=== PATIENT | male | born 1980 | race Caucasian/White ===

== ENCOUNTER 2021-06-23 08:31 | Inpatient (IN) | payer OTHER ==
[2021-06-23] MEDS ORDERED: NITROGLYCERIN SL TABS 0.4 MG TAB SUBLINGUAL STA (08:33)
[2021-06-23] MEDS ORDERED: HEPARIN SODIUM 1,000 UN/ML (10ML VL) IV ONE (08:33)
[2021-06-23] MEDS ORDERED: SODIUM CHLORIDE 0.9% 500 ML 500 ML IV STA (08:33)
[2021-06-23] MEDS ORDERED: LORazepam 2 MG/ML INJ IV STA (08:34)
[2021-06-23] MEDS ORDERED: VERAPAMIL 2.5 MG/ML 2 ML AMP ONE (08:36)
[2021-06-23] MEDS ORDERED: LIDOCAINE 1% INJ 10MG/ML (20 ML MDV) ONE (08:36)
[2021-06-23] MEDS ORDERED: ATORVASTATIN 80 MG TAB PO STA (08:41)
[2021-06-23] MEDS ORDERED: IV FLUID CONTINUATION 950 ML IV ONE (08:45)
--- NOTE | 2021-06-23 08:45 | ED ---
General Adult HPI - General Chief complaint: Chest Pain Stated complaint: STEMI Time Seen by Provider: 06/23/21 08:31 Source: patient, RN notes reviewed, old records reviewed Mode of arrival: EMS Limitations: no limitations - History of Present Illness Initial comments: This is a 41-year-old male who presents emergency Department stating he started having chest pain is 6:00 this morning. He called EMS when EMS arrived they did an EKG and believe the patient to be having a STEMI. I sent the EKG to us and we called a STEMI overhead 20 minutes prior to the patient's arrival. Patient went into trauma to when he arrived because there was no catheterization lab suite available. Patient states that he had some radiation of the pain to his neck and some shortness of breath. Patient states the pain is only a little bit better since he was given fentanyl in route but he states the pain is still pretty significant. Patient did complain of nausea and was given Zofran in route. Patient also had some diaphoresis. Patient states he has high blood pressure and is a smoker. Patient states he has a distant family history of heart disease in an uncle who from heart attack. Patient states has some tingling of his fingertips on both hands. Patient denies any abdominal pain. Patient states currently he is no longer nauseated. Patient denies any recent fever chills or cough. - Related Data Allergies Allergy/AdvReac Type Severity Reaction Status Date / Time Penicillins Allergy Unknown Verified 06/23/21 08:36 Childhood Review of Systems ROS Statement: Those systems with pertinent positive or pertinent negative responses have been documented in the HPI. ROS Other: All systems not noted in ROS Statement are negative. Past Medical History Past Medical History: Hyperlipidemia, Hypertension History of Any Multi-Drug Resistant Organisms: None Reported Past Surgical History: No Surgical Hx Reported Past Psychological History: No Psychological Hx Reported Smoking Status: Current every day smoker Past Alcohol Use History: None Reported Past Drug Use History: None Reported General Exam - General Exam Comments Initial Comments: GENERAL: Patient is well-developed and well-nourished. Patient is nontoxic and well- hydrated and is in mild distress. ENT: Neck is soft and supple. No significant lymphadenopathy is noted. Oropharynx is clear. Moist mucous membranes. Neck has full range of motion without eliciting any pain. EYES: The sclera were anicteric and conjunctiva were pink and moist. Extraocular movements were intact and pupils were equal round and reactive to light. Eyelids were unremarkable. PULMONARY: Unlabored respirations. Good breath sounds bilaterally. No audible rales rhonchi or wheezing was noted. CARDIOVASCULAR: There is a regular rate and rhythm without any murmurs gallops or rubs. ABDOMEN: Soft and nontender with normal bowel sounds. SKIN: Skin is clear with no lesions or rashes and otherwise unremarkable. NEUROLOGIC: Patient is alert and oriented x3. Cranial nerves II through XII are grossly intact. Motor and sensory are also intact. Normal speech, volume and content. Symmetrical smile. MUSCULOSKELETAL: Normal extremities with adequate strength and full range of motion. LYMPHATICS: No significant lymphadenopathy is noted PSYCHIATRIC: Normal psychiatric evaluation. Limitations: no limitations Course Vital Signs 06/23/21 08:32 Pulse Rate 75 Blood Pressure 141/103 O2 Sat by Pulse 97 Oximetry Medical Decision Making - Medical Decision Making EKG shows sinus rhythm at 75 bpm DC interval is on a 45 QRS is 94 QT interval 391 QTC is 420. Patient's EKG shows ST segment elevation in leads II, III, and F aVF and ST segment depression in 1 and aVL. Patient also has ST segment depression also in V1 and V2. Chest x-ray showed no acute abnormality. Patient was given a bolus of heparin. Patient was also given 0.5 of Ativan. Patient was also given sublingual nitroglycerin in the emergency department. Dr. Godwin arrived at 840. I spoke with Dr. Godwin and I spoke with the admitting physician I wrote admitting orders. Critical Care Time Critical Care Time: Yes Total Critical Care Time: 31 Disposition Clinical Impression: ST elevation myocardial infarction (STEMI) Disposition: ADMITTED IP TO THIS HOSP Referrals: Merline Hernandez NPC [REFERRING] - 1-2 days Time of Disposition: 08:44
[2021-06-23 08:47] LABS: Basophils # (A) 0.1 k/uL (0-0.2); Basophils % (A) 1 %; Eosinophils # (A) 0.4 k/uL (0-0.7); Eosinophils % (A) 3 %; HCT 44.3 % (39.0-53.0); HGB 14.8 gm/dL (13.0-17.5); Lymphocytes # (A) 2.3 k/uL (1.0-4.8); Lymphocytes % (A) 16 %; MCH 31.5 pg (25.0-35.0); MCHC 33.3 g/dL (31.0-37.0); MCV 94.7 fL (80.0-100.0); Mean Platelet Volume 8.1; Monocytes # (A) 0.7 k/uL (0-1.0); Monocytes % (A) 5 %; Neutrophils # (A) 10.7 k/uL (1.3-7.7); Neutrophils % (A) 74 %; Platelet Count 229 k/uL (150-450); RBC 4.68 m/uL (4.30-5.90); RDW 12.2 % (11.5-15.5); WBC 14.4 k/uL (3.8-10.6)
[2021-06-23] MEDS ORDERED: SODIUM CHLORIDE 0.9% 500 ML 500 ML IV ONE (08:50)
[2021-06-23 08:59] LABS: Partial Thromboplastin Time 49.1 sec (22.0-30.0); Prothrombin Time 10.6 sec (9.0-12.0)
[2021-06-23] MEDS ORDERED: HYDROmorphone 1 MG/ML 1 ML SYRINGE IVP ONE (08:59)
--- NOTE | 2021-06-23 08:59 | XR ---
EXAMINATION TYPE: XR chest 1V portable DATE OF EXAM: 06/23/2021 COMPARISON: NONE HISTORY: Chest pain TECHNIQUE: Single frontal view of the chest is obtained. FINDINGS: There is no focal air space opacity, pleural effusion, or pneumothorax seen. The cardiac silhouette size is within normal limits. There are overlying leads. The osseous structures are intac t. IMPRESSION: No acute process.
[2021-06-23] MEDS ORDERED: LIDOCAINE 1% INJ 10MG/ML (20 ML MDV) SQ ONE (09:03)
[2021-06-23] MEDS ORDERED: HEPARIN SODIUM 1,000 UN/ML (10ML VL) ONE (09:11)
[2021-06-23 09:16] LABS: ALT 26 U/L (4-49); African American GFR (CKD) >90 (>60 ml/min/1.73 sqM); Albumin 4.2 g/dL (3.5-5.0); Anion Gap 8 mmol/L; Blood Urea Nitrogen 18 mg/dL (9-20); Calcium 8.5 mg/dL (8.4-10.2); Carbon Dioxide 22 mmol/L (22-30); Chloride 109 mmol/L (98-107); Glucose 143 mg/dL (74-99); Non-African American GFR(CKD) 87 (>60 ml/min/1.73 sqM); Sodium 139 mmol/L (137-145); Total Bilirubin 0.7 mg/dL (0.2-1.3); Total Protein 7.3 g/dL (6.3-8.2)
[2021-06-23] MEDS ORDERED: CLOPIDOGREL 75 MG TAB ONE (09:17)
[2021-06-23 09:21] LABS: AST 38 U/L (17-59); Alkaline Phosphatase 77 U/L (38-126); Magnesium 1.9 mg/dL (1.6-2.3)
[2021-06-23] MEDS: PHENYLEPHRINE-0.9% NACL SYG 1,000 MCG/10 ML SYRINGE IV ONE ×3 (09:21→09:30)
[2021-06-23] MEDS ORDERED: TIROFIBAN 12.5MG-250ML NS 250 ML IV ONE (09:24)
[2021-06-23] MEDS ORDERED: TIROFIBAN BOLUS 12.5MG/250 ML BAG IV ONE (09:24)
[2021-06-23] MEDS ORDERED: niCARdipine 25 MG/10 ML VIAL ONE (09:25)
[2021-06-23] MEDS ORDERED: NOREPINEPHRINE 4 MG in SODIUM CHLORIDE 0.9% 250 ML IV ONE (09:35)
[2021-06-23] MEDS ORDERED: CLOPIDOGREL 75 MG TAB PO ONE (09:42)
[2021-06-23] MEDS ORDERED: PHENYLEPHRINE-0.9% NACL SYG 1,000 MCG/10 ML SYRINGE IV ONE (09:46)
[2021-06-23] MEDS ORDERED: niCARdipine Syringe (1,000 mcg/10 mL) INTRACORON ONE (09:49)
[2021-06-23] MEDS ORDERED: IOPAMIDOL-370 100ML BTL INJ ONE ×2 (09:50→10:07)
[2021-06-23] MEDS ORDERED: NITROGLYCERIN 1000MCG/10ML SYRINGE INTRACORON ONE (09:57)
[2021-06-23] MEDS: SODIUM CHLORIDE 0.9% 1,000 ML IV SCH ×2 (10:30→16:25)
--- NOTE | 2021-06-23 10:34 | P.CRDCN ---
History of Present Illness Consult date: 06/23/21 History of present illness: HISTORY OF PRESENT ILLNESS: This is a 41 year old male with a past medical history significant for hypertension, marijuana use, and nicotine dependence. Patient does not follow with a ob/gyn. We have been asked to see the patient in consultation for STEMI. Patient examined at the bedside in the ER. Patient began having chest pain this morning. He reports the pain was in the middle of his chest and also the right side. He reports radiation into his back and his right arm. EKG completed revealed ST elevation in inferior leads. * EKG reveals ST elevation in inferior leads with reciprocal changes * Chest xray negative for acute process * Laboratory data: WBC 14.4. Hemoglobin 14.8. Platelet count 129. Sodium 139. Potassium 5.0. BUN 18. Creatinine 1.07. Magnesium 1.9. Troponin 0.056. * Current home cardiac medications include lisinopril 20 mg daily and hydrochlorothiazide 25 mg daily REVIEW OF SYSTEMS: At the time of my exam: CONSTITUTIONAL: Denies fever or chills. HEENT: Denies blurred vision, vision changes, or eye pain. Denies hemoptysis CARDIOVASCULAR: + chest pain. Denies orthopnea. Denies PND. Denies palpitations RESPIRATORY: Denies shortness of breath. GASTROINTESTINAL: Denies abdominal pain. Denies nausea or vomiting. HEMATOLOGIC: Denies bleeding disorders. GENITOURINARY: Denies any blood in urine. SKIN: Denies pruitis. Denies rash. PHYSICAL EXAM: VITAL SIGNS: Reviewed. GENERAL: Well-developed in no acute distress. HEENT: Head is normocephalic. Pupils are equal, round. Sclerae anicteric. Mucous membranes of the mouth are moist. Neck supple. No JVD or thyromegaly LUNGS: Respirations even and unlabored. Lungs essentially clear to auscultation bilaterally. HEART: Regular rate and rhythm. S1 and S2 heard. ABDOMEN: Soft. Nondistended. Nontender. EXTREMITIES: Normal range of motion. No clubbing or cyanosis. Peripheral pulses intact. No lower extremity edema NEUROLOGIC: Awake and alert. Oriented x 3. 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 Vazquez Further recommendations pending patient course Nurse practitioner note has been reviewed by physician. Signing provider agrees with the documented findings, assessment, and plan of care. Past Medical History Past Medical History: Hyperlipidemia, Hypertension History of Any Multi-Drug Resistant Organisms: None Reported Past Surgical History: No Surgical Hx Reported Past Psychological History: No Psychological Hx Reported Smoking Status: Current every day smoker Past Alcohol Use History: None Reported Past Drug Use History: None Reported Medications and Allergies Home Medications Medication Instructions Recorded Confirmed Type Albuterol Sulfate [Proair Hfa] 2 puff INHALATION RT-QID PRN 06/23/21 06/23/21 History Budesonide/Formoterol Fumarate 2 puff INHALATION RT-BID 06/23/21 06/23/21 History [Symbicort 80-4.5 Mcg Inhaler] Cyclobenzaprine [Flexeril] 20 mg PO BID PRN 06/23/21 06/23/21 History Dicyclomine HCl 20 mg PO QID 06/23/21 06/23/21 History Naproxen [Naprosyn] 500 mg PO BID 06/23/21 06/23/21 History Omeprazole 40 mg PO BID 06/23/21 06/23/21 History buPROPion HCL [buPROPion HCL Xl] 150 mg PO DAILY 06/23/21 06/23/21 History buPROPion XL [Wellbutrin XL] 300 mg PO DAILY 06/23/21 06/23/21 History hydroCHLOROthiazide [Hydrodiuril] 25 mg PO DAILY 06/23/21 06/23/21 History lisinopriL [Prinivil] 20 mg PO DAILY 06/23/21 06/23/21 History Allergies Allergy/AdvReac Type Severity Reaction Status Date / Time Penicillins Allergy Unknown Verified 06/23/21 09:28 Childhood Physical Exam Vitals: Vital Signs Pulse BP Pulse Ox 06/23/21 08:35 136/101 06/23/21 08:32 75 141/103 97 Intake and Output 06/22/21 06/23/21 06/23/21 22:59 06:59 14:59 Intake Total 423.41 Output Total 0 Balance 423.41 Intake: IV 423.41 Output: Urine 0 Other: Weight 119.295 kg Results 06/23/21 08:39 06/23/21 08:39 Cardiac Enzymes 06/23/21 06/23/21 Range/Units 08:39 08:39 AST 38 (17-59) U/L Troponin I 0.056 H* (0.000-0.034) ng/mL Coagulation 06/23/21 Range/Units 08:39 PT 10.6 (9.0-12.0) sec APTT 49.1 H (22.0-30.0) sec CBC 06/23/21 Range/Units 08:39 WBC 14.4 H (3.8-10.6) k/uL RBC 4.68 (4.30-5.90) m/uL Hgb 14.8 (13.0-17.5) gm/dL Hct 44.3 (39.0-53.0) % Plt Count 229 (150-450) k/uL Comprehensive Metabolic Panel 06/23/21 Range/Units 08:39 Sodium 139 (137-145) mmol/L Potassium 5.0 (3.5-5.1) mmol/L Chloride 109 H (98-107) mmol/L Carbon Dioxide 22 (22-30) mmol/L BUN 18 (9-20) mg/dL Creatinine 1.07 (0.66-1.25) mg/dL Glucose 143 H (74-99) mg/dL Calcium 8.5 (8.4-10.2) mg/dL AST 38 (17-59) U/L ALT 26 (4-49) U/L Alkaline Phosphatase 77 (38-126) U/L Total Protein 7.3 (6.3-8.2) g/dL Albumin 4.2 (3.5-5.0) g/dL Current Medications Generic Name Dose Route Start Last Admin Trade Name Freq PRN Reason Stop Dose Admin Sodium Chloride 1,000 mls @ 75 mls/hr 06/23/21 10:15 Saline 0.9% IV 06/24/21 10:30 .[id number] VIDAL Intake and Output 06/22/21 06/23/21 06/23/21 22:59 06:59 14:59 Intake Total 423.41 Output Total 0 Balance 423.41 Intake: IV 423.41 Output: Urine 0 Other: Weight 119.295 kg Patient Weight 06/24/21 06:59 Weight 119.295 kg 06/23/21 08:39 06/23/21 08:39
[2021-06-23 10:36] LABS: Glucose,Whole Blood 154 mg/dL (75-99)
[2021-06-23] MEDS: TIROFIBAN 12.5MG-250ML NS 250 ML IV SCH ×2 (11:00→16:26)
--- NOTE | 2021-06-23 11:43 | CC ---
CARDIAC CATHETERIZATION REPORT DATE OF SERVICE: 06/23/2021. PROCEDURES: 1. Left heart catheterization and coronary angiography. 2. Percutaneous transluminal coronary angioplasty and stenting of a totally occluded RCA in the setting of an acute ST-elevation PR with reperfusion accomplished in 46 minutes. Drug-eluting stents were deployed. PERFORMED BY: Dr. Kelvin Vazquez. Moderate conscious sedation time was 65 minutes. Patient was administered Versed and Dilaudid. Oxygen saturation, hemodynamics and EKG were monitored closely. CLINICAL INFORMATION: Mr. Dannie Chilel is a 41-year-old morbidly obese gentleman who developed chest pain, was brought here by EMS from [place]. He was seen and evaluated by Dr. Godwin when he presented with an acute inferior myocardial infarction with ST elevation. He was hemodynamically stable after receiving some IV fluids. I proceeded with a prompt cardiac catheterization after due discussion regarding risks, benefits and options. PROCEDURE NOTE: Under strict aseptic precautions and local anesthesia, a 6-Mohawk introducer was placed in the right radial artery. I started off by doing a PCI. I used a standard right Theo guide catheter to cannulate the right coronary artery. This vessel was totally occluded. I went ahead and performed PCI of this vessel with an excellent result and then performed coronary angiography of the left system. The same right catheter was used to check LV pressure, but LV gram was not performed. Following the procedure, the sheath was taken out and TR band applied as per protocol with saturation in the fingers of the hand of about 95%. Patient tolerated the procedure well without complication. Excellent angiographic result was achieved. He received intravenous heparin as well as Aggrastat drip. ACT was between 200 and 250. He received 600 mg of Plavix. Results were discussed with the patient. No family was available. He was sent to the room in a stable condition after application of a TR band. Patient required transient use of Levophed in the lab head. CARDIAC CATHETERIZATION FINDINGS: RIGHT CORONARY ARTERY: Large dominant vessel, totally occluded, seen as a stump. LEFT MAIN CORONARY ARTERY: Short, patent, disease-free vessel that bifurcates into LAD and circumflex. LEFT ANTERIOR DESCENDING CORONARY ARTERY: Good-caliber vessel extends along the anterior wall. It gives off septal and diagonal branches. There is a good-sized diagonal branch that comes off in the mid portion, several smaller septal branches. There are minor irregularities. No significant disease. There is no more than a 35% narrowing in the mid LAD. Good-caliber and good-distribution vessels are noted. Septals are free of significant disease. LEFT POSTERIOR CIRCUMFLEX CORONARY ARTERY: Nondominant vessel gives off a good-sized obtuse marginal and then a posterolateral branch and gives off an AV groove branch and left atrial circumflex branch. There are only minor irregularities. No significant disease in the circumflex. Left ventricular end-diastolic pressure was about 13 mmHg without any gradient across the aortic valve. 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 He presented with acute inferior ST-elevation PR. Right coronary is a dominant vessel. No significant disease in left system. Normal filling pressures. No gradient. RECOMMENDATIONS: I proceeded with PCI of RCA expeditiously. PCI PROCEDURE DETAILS: I used a standard right Theo catheter and a run-through wire. I used a 3.0 caliber 12 mm long Trek balloon to pre-dilate the lesion. This was a long lesion with haziness and significant amount of thrombus burden. I also started Aggrastat drip. ACT was kept between 200 and 250. I deployed initially a 28 mm long 3.5 caliber Xience stent, and at the distal end of the stent there was still some haziness and narrowing. I then used a 4.0 caliber mm Xience stent, and distal to it I deployed another 3.5 caliber Xience stent. Between the 4.0 and 3.5 there was a small area which looked like a gap between the two stents. I deployed an 8 mm long 3.5 caliber Xience stent. Patient therefore has a 28 mm 3.5 caliber stent proximally followed by a 4.0 caliber stent, and then there are two 3.5 stents, 8 mm and distally 12 mm. Excellent angiographic result was achieved without complication. Patient required some IV fluids and transient use of Levophed and phenylephrine. However, excellent result was achieved. He was off all pressors. He was sent to the room in a stable condition. Details were discussed with the patient. There was no family available. There was an excellent MICHELL-3 flow with complete resolution of chest pain and complete resolution of EKG changes. Patient will have an echocardiogram tomorrow. MMODL / IJN: [id number] /
--- NOTE | 2021-06-23 12:34 | P.CNPUL ---
History of Present Illness Consult date: 06/23/21 Reason for consult: chest pain History of present illness: 41-year-old male patient, obese, BMI of 36.7, positive coronary artery disease history in the family, a chronic smoker with smokes a pack of symptoms today and he carries more than [id number] smoking history and he also smokes marijuana. He presented to the hospital because of chest pain and he was found to have your wall ST segment elevation microinfarction. Based on that, a STEMI alert was initiated and the patient was taken to the [facility] and the patient underwent cardiac catheterization and depressed and stenting times for to the RCA. Following that, the patient was brought into the intensive care unit. Currently history of any chest pain. EKG has normalized. Troponin initially was a 0.056. Normal renal function. Normal electrolytes. Plated count was at 129 with a white second of 14.4 and a hemoglobin of 14.8. The patient is known to have hypertension and no other history of cardiac disease. He has chronic bronchitis due to COPD maintenance Symbicort on outpatient basis. His cardiac catheterization was done through the right radial approach. No evidence of any bleed at the site. He has equal and symmetrical pulses in all 4 extremities. No focal logical deficits point in time. In terms of his COVID 19 status, the patient has not been vaccinated for COVID 19. Review of Systems Constitutional: Denies chills, Denies fever Eyes: denies as per HPI, denies blurred vision, denies bulging eye, denies decreased vision, denies diplopia, denies discharge, denies dry eye, denies irritation, denies itching, denies pain, denies photophobia, denies loss of peripheral vision, denies loss of vision, denies tunnel vision/blind spots Ears: deny: decreased hearing, ear discharge, earache, tinnitus Ears, nose, mouth and throat: Reports as per HPI Breasts: absent: as per HPI, gynecomastia Cardiovascular: Reports chest pain Respiratory: Reports cough Gastrointestinal: Reports as per HPI Genitourinary: Reports as per HPI Musculoskeletal: Reports as per HPI Musculoskeletal: absent: ankle pain, ankle stiffness, ankle swelling Integumentary: Reports as per HPI Neurological: Reports as per HPI Psychiatric: Reports as per HPI Endocrine: Reports as per HPI Hematologic/Lymphatic: Reports as per HPI Allergic/Immunologic: Reports as per HPI Past Medical History Past Medical History: Hyperlipidemia, Hypertension Additional Past Medical History / Comment(s): hand and foot edema, ibs, inconten of urine and stool (wears a brief). Last Myocardial Infarction Date:: History of Any Multi-Drug Resistant Organisms: None Reported Past Surgical History: No Surgical Hx Reported Past Anesthesia/Blood Transfusion Reactions: No Reported Reaction Date of Last Stent Placement:: Past Psychological History: No Psychological Hx Reported Smoking Status: Current every day smoker Past Alcohol Use History: None Reported Past Drug Use History: None Reported - Past Family History Father History Unknown: Yes Additional Family Medical History / Comment(s): abusive to mother, alcoholic Mother Family Medical History: AFIB Medications and Allergies Home Medications Medication Instructions Recorded Confirmed Type Albuterol Sulfate [Proair Hfa] 2 puff INHALATION RT-QID PRN 06/23/21 06/23/21 History Budesonide/Formoterol Fumarate 2 puff INHALATION RT-BID 06/23/21 06/23/21 History [Symbicort 80-4.5 Mcg Inhaler] Cyclobenzaprine [Flexeril] 20 mg PO BID PRN 06/23/21 06/23/21 History Dicyclomine HCl 20 mg PO QID 06/23/21 06/23/21 History Naproxen [Naprosyn] 500 mg PO BID 06/23/21 06/23/21 History Omeprazole 40 mg PO BID 06/23/21 06/23/21 History buPROPion HCL [buPROPion HCL Xl] 150 mg PO DAILY 06/23/21 06/23/21 History buPROPion XL [Wellbutrin XL] 300 mg PO DAILY 06/23/21 06/23/21 History hydroCHLOROthiazide [Hydrodiuril] 25 mg PO DAILY 06/23/21 06/23/21 History lisinopriL [Prinivil] 20 mg PO DAILY 06/23/21 06/23/21 History Allergies Allergy/AdvReac Type Severity Reaction Status Date / Time Penicillins Allergy Unknown Verified 06/23/21 09:28 Childhood Physical Exam Vitals: Vital Signs Temp Pulse Resp BP Pulse Ox 06/23/21 11:00 109 H 12 93 L 06/23/21 10:45 108 H 11 L 125/73 93 L 06/23/21 10:34 97.5 F L 108 H 11 L 93 L 06/23/21 08:35 136/101 06/23/21 08:32 75 141/103 97 Intake and Output 06/22/21 06/23/21 06/23/21 22:59 06:59 14:59 Intake Total 519.83 Output Total 0 Balance 519.83 Intake: IV 519.83 Sodium Chloride 0.9% 1, 75 000 ml @ 75 mls/hr IV . [id number] [facility] Rx#:[id number] Tirofiban 12.5MG-250Ml Ns 21.42 250 ml @ 0 mls/hr IV . [facility] Rx#: [id number] Output: Urine 0 Other: Weight 119.295 kg The patient appeared well nourished and normally developed. Vital signs as documented. Head exam is unremarkable. No scleral icterus or corneal arcus note d. Neck is without jugular venous distension, thyromegaly, or carotid bruits. Carotid upstrokes are brisk bilaterally. Lungs are clear to auscultation and percussion. Cardiac exam reveals the PMI to be normally sized and situated. Rhythm is regular. First and second heart sounds normal. No murmurs, rubs or gallops. Abdominal exam reveals normal bowel sounds, no masses, no organomegaly and no aortic enlargement. Extremities are nonedematous and both femoral and pedal pulses are normal. The right upper extremity site is dry clean and intact and there is a radial artery stop for compression. Examination of the skin revealed no evidence of significant rashes, suspicious appearing nevi or other concerning lesions.Neurologically, the patient is awake and alert and the patient does not have any focal neurological deficit. Cranial nerves are essentially intact. Results - Laboratory Findings CBC and BMP: 06/23/21 08:39 06/23/21 08:39 PT/INR, D-dimer PT 10.6 sec (9.0-12.0) 06/23/21 08:39 INR 1.0 (<1.2) 06/23/21 08:39 Abnormal lab findings: Abnormal Labs 06/23/21 06/23/21 06/23/21 08:39 08:39 08:39 WBC 14.4 H Neutrophils # 10.7 H APTT 49.1 H Chloride 109 H Glucose 143 H POC Glucose (mg/dL) Troponin I 06/23/21 06/23/21 08:39 10:33 WBC Neutrophils # APTT Chloride Glucose POC Glucose (mg/dL) 154 H Troponin I 0.056 H* - Diagnostic Findings Chest x-ray: image reviewed Assessment and Plan Plan: [address] segment elevation myocardial infarction. Patient is post cardiac catheterization and stenting of the RCA times 4. Please refer to the detailed cardiac catheterization report provided by cardiology. Currently hemodynamically stable and the patient is history of any chest pain. 2 smoker 3 hyperlipidemia 4 history of marijuana smoking 5 chronic bronchitis Plan Keep the patient intensive care unit Continue aspirin and Plavix May need to start the patient on metoprolol 25 mg twice a day Start the patient on high-dose statins Fasting lipid profile Chest x-ray was clear 2-D echocardiogram We'll continue to follow Time with Patient: Greater than 30
--- NOTE | 2021-06-23 13:28 | P.HPIM ---
History of Present Illness H&P Date: 06/23/21 Chief Complaint: Chest pain Patient is a 41-year-old male with a known with a known history of hypertension,, carotid currently everyday smoking, marijuana use occasionally an d distant history of fall with left shoulder injury presents to ER with complaints of chest pain. Patient states that he woke up in the morning and felt pain in the middle of his chest and radiating to the right shoulder and to the back and right arm.. He felt some numbness in the left fingers. Patient has been having pain in the left shoulder from recent fall.Patient states that he has been having dizziness when he gets up suddenly. Denies any exertional dyspnea or shortness of breath. Pain is associate with shortness of breath and diaphoresis and nausea and episode of vomiting x1. Patient was given fentanyl by EMS and seemed to improve his pain. EKG showed ST elevation in the inferior leads. Patient was immediately taken to cardiac catheterization. EKG showed ST elevation in the inferior leads. Chest x-ray showed no acute process. Laboratory showed WBC 14.4 hemoglobin 14.8 and platelets 229 Sodium 139 potassium 5.0 chloride 109 BUN 18 and creatinine 1.07 and blood sugar is 143 Troponin 0 0.056 Liver enzymes are not elevated. Review of Systems Constitutional: Patient denies any fever or chills . No generalized weakness or weight loss. Abdomen: Patient denied nausea vomiting and diarrhea and abdominal pain. Cardiovascular: Patient denies any chest pain or short of breath no palpitations. Respiratory: patient denied any cough is from production. No shortness of breath Neurologic: Patient denied any numbness or tingling headache. Musculoskeletal: Patient denies any complaints of joint swelling or deformity. Skin: Negative Psychiatric: Negative Endocrine: No heat or cold intolerance. No recent weight gain. Genitourinary: No dysuria or hematuria. All other 14 point ROS negative except the above Past Medical History Past Medical History: Hyperlipidemia, Hypertension Additional Past Medical History / Comment(s): hand and foot edema, ibs, inconten of urine and stool (wears a brief). Last Myocardial Infarction Date:: History of Any Multi-Drug Resistant Organisms: None Reported Past Surgical History: No Surgical Hx Reported Past Anesthesia/Blood Transfusion Reactions: No Reported Reaction Date of Last Stent Placement:: Past Psychological History: No Psychological Hx Reported Smoking Status: Current every day smoker Past Alcohol Use History: None Reported Past Drug Use History: None Reported - Past Family History Father History Unknown: Yes Additional Family Medical History / Comment(s): abusive to mother, alcoholic Mother Family Medical History: AFIB Medications and Allergies Home Medications Medication Instructions Recorded Confirmed Type Albuterol Sulfate [Proair Hfa] 2 puff INHALATION RT-QID PRN 06/23/21 06/23/21 Hi story Budesonide/Formoterol Fumarate 2 puff INHALATION RT-BID 06/23/21 06/23/21 History [Symbicort 80-4.5 Mcg Inhaler] Cyclobenzaprine [Flexeril] 20 mg PO BID PRN 06/23/21 06/23/21 History Dicyclomine HCl 20 mg PO QID 06/23/21 06/23/21 History Naproxen [Naprosyn] 500 mg PO BID 06/23/21 06/23/21 History Omeprazole 40 mg PO BID 06/23/21 06/23/21 History buPROPion HCL [buPROPion HCL Xl] 150 mg PO DAILY 06/23/21 06/23/21 History buPROPion XL [Wellbutrin XL] 300 mg PO DAILY 06/23/21 06/23/21 History hydroCHLOROthiazide [Hydrodiuril] 25 mg PO DAILY 06/23/21 06/23/21 History lisinopriL [Prinivil] 20 mg PO DAILY 06/23/21 06/23/21 History Allergies Allergy/AdvReac Type Severity Reaction Status Date / Time Penicillins Allergy Unknown Verified 06/23/21 09:28 Childhood Physical Exam Vitals: Vital Signs Temp Pulse Resp BP Pulse Ox 06/23/21 12:45 91 17 128/80 94 L 06/23/21 12:30 104 H 28 H 126/81 95 06/23/21 12:15 90 23 133/81 95 06/23/21 12:00 100 15 122/83 94 L 06/23/21 11:45 90 24 128/79 95 06/23/21 11:30 90 16 105/86 95 06/23/21 11:15 104 H 19 131/83 95 06/23/21 11:00 109 H 12 93 L 06/23/21 10:45 108 H 11 L 125/73 93 L 06/23/21 10:34 97.5 F L 108 H 11 L 93 L 06/23/21 08:35 136/101 06/23/21 08:32 75 141/103 97 Intake and Output 06/22/21 06/23/21 06/23/21 22:59 06:59 14:59 Intake Total 1116.25 Output Total 0 Balance 1116.25 Intake: IV 616.25 Sodium Chloride 0.9% 1, 150 000 ml @ 75 mls/hr IV . [id number] [facility] Rx#:[id number] Tirofiban 12.5MG-250Ml Ns 42.84 250 ml @ 0 mls/hr IV . [facility] Rx#: [id number] Oral 500 Output: Urine 0 Other: Weight 119.295 kg PHYSICAL EXAMINATION: Patient is lying in the bed comfortably, no acute distress, awake alert and oriented.. HEENT: Normocephalic. Neck is supple. Pupils reactive. Nostrils clear. Oral cavity is moist. Neck reveals no JVD, carotid bruits, or thyromegaly. CHEST EXAMINATION: Trachea is central. Symmetrical expansion. Lung cole clear to auscultation and percussion. CARDIAC: Normal S1, S2 with no gallops. No murmurs ABDOMEN: Soft. Bowel sounds normal. No organomegaly. No abdominal bruits. Extremities: reveal no edema. No clubbing or cyanosis Neurologically awake, alert, oriented x3 with well-coordinated movements. No focal deficits noted Skin: No rash or skin lesions. Psychiatric: Coperative. Nonsuicidal Musculoskeletal: No joint swelling or deformity. Normal range of motion. Results CBC & Chem 7: 06/23/21 08:39 06/23/21 08:39 Labs: Abnormal Lab Results - Last 24 Hours (Table) 06/23/21 06/23/21 06/23/21 Range/Units 08:39 08:39 08:39 WBC 14.4 H (3.8-10.6) k/uL Neutrophils # 10.7 H (1.3-7.7) k/uL APTT 49.1 H (22.0-30.0) sec Chloride 109 H (98-107) mmol/L Glucose 143 H (74-99) mg/dL POC Glucose (mg/dL) (75-99) mg/dL Troponin I (0.000-0.034) ng/mL 06/23/21 06/23/21 Range/Units 08:39 10:33 WBC (3.8-10.6) k/uL Neutrophils # (1.3-7.7) k/uL APTT (22.0-30.0) sec Chloride (98-107) mmol/L Glucose (74-99) mg/dL POC Glucose (mg/dL) 154 H (75-99) mg/dL Troponin I 0.056 H* (0.000-0.034) ng/mL Thrombosis Risk Factor Assmnt - DVT/VTE Prophylaxis DVT/VTE Prophylaxis: Pharmacologic Prophylaxis ordered Assessment and Plan Assessment: Acute ST elevated inferior wall [place] Hypertension Mild leukocytosis. Likely reactive. Follow-up repeat CBC. Ongoing nicotine addiction History of marijuana use Recent fall and left shoulder injury. DVT prophylaxis Plan: Patient was started on IV heparin and was taken to [facility]. Patient is status post cardiac catheterization and stent placement to RCA. Continue with aspirin, statins, Plavix and metoprolol. Continue with telemetry monitoring.Follow-up lipid panel Cardiology and pulmonary is on board. Time with Patient: Greater than 30
--- NOTE | 2021-06-23 14:49 | XR ---
Left shoulder HISTORY: Trauma and pain 3 views of left shoulder Bone mineralization, joint spaces and alignment are maintained. There are overlying artifacts. Left l guillermina apex as visualized is normal. IMPRESSION: No fracture or dislocation is evident.
[2021-06-23] MEDS: ACETAMINOPHEN TAB 325 MG TAB PO PRN ×2 (15:32→20:51)
[2021-06-23] MEDS: PANTOPRAZOLE 40 MG TABLET PO SCH (16:31)
[2021-06-23] MEDS: METOPROLOL TARTRATE 25 MG TAB PO SCH (20:51)
[2021-06-24] MEDS: SODIUM CHLORIDE 0.9% 1,000 ML IV SCH (05:38)
[2021-06-24 06:16] LABS: Basophils % (A) 0 %; Eosinophils # (A) 0.2 k/uL (0-0.7); Eosinophils % (A) 2 %; HGB 13.7 gm/dL (13.0-17.5); Lymphocytes # (A) 2.6 k/uL (1.0-4.8); Lymphocytes % (A) 18 %; MCH 31.1 pg (25.0-35.0); MCHC 32.5 g/dL (31.0-37.0); MCV 95.5 fL (80.0-100.0); Mean Platelet Volume 7.9; Monocytes # (A) 1.1 k/uL (0-1.0); Monocytes % (A) 8 %; Neutrophils % (A) 70 %; Platelet Count 202 k/uL (150-450); RBC 4.39 m/uL (4.30-5.90); RDW 12.3 % (11.5-15.5); WBC 14.2 k/uL (3.8-10.6)
[2021-06-24 06:30] LABS: African American GFR (CKD) >90 (>60 ml/min/1.73 sqM); Anion Gap 4 mmol/L; Blood Urea Nitrogen 14 mg/dL (9-20); Calcium 8.4 mg/dL (8.4-10.2); Carbon Dioxide 23 mmol/L (22-30); Chloride 108 mmol/L (98-107); Glucose 118 mg/dL (74-99); Non-African American GFR(CKD) >90 (>60 ml/min/1.73 sqM); Potassium 4.2 mmol/L (3.5-5.1); Sodium 135 mmol/L (137-145)
[2021-06-24] MEDS: PANTOPRAZOLE 40 MG TABLET PO SCH (06:33)
[2021-06-24] MEDS ORDERED: PANTOPRAZOLE 40 MG TABLET PO SCH (07:30)
[2021-06-24] MEDS: ASPIRIN 81 MG PO SCH (08:36)
[2021-06-24] MEDS: METOPROLOL TARTRATE 25 MG TAB PO SCH ×2 (08:36→20:23)
[2021-06-24] MEDS: CLOPIDOGREL 75 MG TAB PO SCH (08:36)
[2021-06-24] MEDS: ATORVASTATIN 80 MG TAB PO SCH (08:36)
--- NOTE | 2021-06-24 09:00 | ECHOF ---
Referral Reason:lv function MEASUREMENTS -------- HEIGHT: 180.3 cm WEIGHT: 119.3 kg BP: 128/79 IVSd: 1.5 cm (0.6 - 1.1) LVIDd: 4.6 cm (3.9 - 5.3) LVPWd: 1.2 cm (0.6 - 1.1) IVSs: 2.0 cm LVIDs: 2.5 cm LVPWs: 1.8 cm LAESV Index (A-L): 22.72 ml/m Ao Diam: 3.0 cm (2.0 - 3.7) AV Cusp: 2.1 cm (1.5 - 2.6) LA Diam: 3.4 cm (2.7 - 3.8) MV EXCURSION: 19.315 mm (> 18.000) MV EF SLOPE: 105 mm/s (70 - 150) EPSS: 0.4 cm MV E Darrell: 0.96 m/s MV DecT: 228 ms MV A Darrell: 0.67 m/s MV E/A Ratio: 1.43 FINDINGS -------- Sinus rhythm. This was a technically difficult study with suboptimal views. The left ventricular size is normal. There is moderate concentric left ventricular hypertrophy. O verall left ventricular systolic function is low-normal with, an EF between 50 - 55 %. The RV was not well visualized. Normal LA size by volume 22+/-6 ml/m2. The right atrium was not well visualized. 5.0mg of Lumason was utilized for enhancement of images Interatrial and interventricular septum intact. The aortic valve was not well visualized. There is no evidence of aortic regurgitation. There is no evidence of aortic stenosis. No mitral regurgitation. Trace tricuspid regurgitation present. There is no evidence of pulmonary hypertension. The right ventricular systolic pressure, as measured by Doppler, is {RVSP}. There is no pulmonic regurgitation present. The aortic root size is normal. IVC Not well visulized. There is no pericardial effusion. CONCLUSIONS -------- 1. The left ventricular size is normal. 2. There is moderate concentric left ventricular hypertrophy. 3. Overall left ventricular systolic function is low-normal with, an EF between 50 - 55 %. 4. Trace tricuspid regurgitation present. HOME HEALTH PHYSICAL THERAPIST: Lavinia Khoury, [facility]
--- NOTE | 2021-06-24 13:13 | P.PN ---
<Laura Bertrand - Last Filed: 06/24/21 13:09> Subjective Progress Note Date: 06/24/21 Principal diagnosis: Acute inferior wall ST segment elevation myocardial infarction 41-year-old male patient, obese, BMI of 36.7, positive coronary artery disease history in the family, a chronic smoker with smokes a pack of symptoms today and he carries more than [id number] smoking history and he also smokes marijuana. He presented to the hospital because of chest pain and he was found to have your wall ST segment elevation microinfarction. Based on that, a STEMI alert was initiated and the patient was taken to the [facility] and the patient underwent cardiac catheterization and depressed and stenting times for to the RCA. Following that, the patient was brought into the intensive care unit. Currently history of any chest pain. EKG has normalized. Troponin initially was a 0.056. Normal renal function. Normal electrolytes. Plated count was at 129 with a white second of 14.4 and a hemoglobin of 14.8. The patient is known to have hypertension and no other history of cardiac disease. He has chronic bronchitis due to COPD maintenance Symbicort on outpatient basis. His cardiac catheteriz ation was done through the right radial approach. No evidence of any bleed at the site. He has equal and symmetrical pulses in all 4 extremities. No focal logical deficits point in time. In terms of his COVID 19 status, the patient has not been vaccinated for COVID 19. The patient was seen today 06/24/2021 and follow-up in the intensive care unit. He is currently resting comfortably in bed. Awake and alert in no acute distress. No episodes of chest discomfort. He's been maintaining good O2 saturations in the 90s on 2 L/m per nasal cannula. He's been afebrile. Hemodynamically stable. He was having discomfort in his left shoulder. X-ray revealed no evidence of fracture or dislocation. White count 14.2. Hemoglobin 13.7. Sodium 135. Potassium 4.2. Creatinine 0.77. Glucose 118. Troponin peaked at 42.2. He is continued on aspirin, Plavix, beta blockers, statins, NADINE inhibitor is. Objective - Vital Signs Vital signs: Vital Signs Temp 99.0 F 06/24/21 11:41 Pulse 79 06/24/21 11:41 Resp 13 06/24/21 09:00 BP 105/64 06/24/21 11:41 Pulse Ox 97 06/24/21 11:41 Intake & Output 06/23/21 06/24/21 06/24/21 18:59 06:59 18:59 Intake Total 2194.77 1496.36 475 Output Total 877 969 8127 Balance 1294.77 696.36 -725 Weight 119.295 kg 125 kg Intake: IV 1194.77 996.36 225 Sodium Chloride 0.9% 1, 600 825 225 000 ml @ 75 mls/hr IV . [id number] [facility] Rx#:[id number] Tirofiban 12.5MG-250Ml Ns 171.36 171.36 0 250 ml @ 0 mls/hr IV . [facility] Rx#: [id number] Oral 1000 500 250 Output: Urine 284 509 [id number] Other: Voiding Method Urinal Urinal Urinal Incontinent Incontinent Incontinent - Exam GENERAL EXAM: Alert, very pleasant obese 41-year-old male patient, on 2 L nasal cannula, comfortable in no apparent distress. HEAD: Normocephalic. EYES: Normal reaction of pupils, equal size. NOSE: Clear with pink turbinates. THROAT: No erythema or exudates. NECK: No masses, no JVD. CHEST: No chest wall deformity. LUNGS: Equal air entry with no crackles, wheeze, rhonchi or dullness. CVS: S1 and S2 normal with no audible murmur, regular rhythm. ABDOMEN: No hepatosplenomegaly, normal bowel sounds, no guarding or rigidity. SPINE: No scoliosis or deformity SKIN: No rashes CENTRAL NERVOUS SYSTEM: No focal deficits, tone is normal in all 4 extremities. EXTREMITIES: There is no peripheral edema. No clubbing, no cyanosis. Peripheral pulses are intact. - Labs CBC & Chem 7: 06/24/21 05:52 06/24/21 05:52 Labs: Abnormal Lab Results - Last 24 Hours (Table) 06/23/21 06/23/21 06/24/21 Range/Units 14:06 19:33 05:52 WBC 14.2 H (3.8-10.6) k/uL Neutrophils # 10.0 H (1.3-7.7) k/uL Monocytes # 1.1 H (0-1.0) k/uL Sodium (137-145) mmol/L Chloride (98-107) mmol/L Glucose (74-99) mg/dL Troponin I 27.200 H* 42.200 H* (0.000-0.034) ng/mL 06/24/21 Range/Units 05:52 WBC (3.8-10.6) k/uL Neutrophils # (1.3-7.7) k/uL Monocytes # (0-1.0) k/uL Sodium 135 L (137-145) mmol/L Chloride 108 H (98-107) mmol/L Glucose 118 H (74-99) mg/dL Troponin I (0.000-0.034) ng/mL Assessment and Plan Assessment: [address] segment elevation myocardial infarction. Patient is post cardiac catheterization and stenting of the RCA times 4. Please refer to the detailed cardiac catheterization report provided by cardiology. Currently hemodynamically stable and the patient is history of any chest pain. 2 smoker 3 hyperlipidemia 4 history of marijuana smoking 5 chronic bronchitis Plan The patient was seen and evaluated Stable from the pulmonary and critical care standpoint To be transferred out of the ICU today Continue the current treatment plan Increase his activity as tolerated Titrate down the FiO2 as tolerated We will continue to follow I, the cosigning physician, performed a history & physical examination of the patient. Lungs sounds are clear. Maintaining good O2 saturations in the 90s on room air. I discussed the assessment and plan of care with my nurse practitioner, Laura Bertrand. I attest to the above note as dictated by her. I have personally seen and examined the patient, performed the documentation and the assessment and plan as written. Number of minutes spent on the visit: 10. <Dalton Matias - Last Filed: 06/24/21 15:31> Objective - Vital Signs Vital signs: Vital Signs Temp 99.0 F 06/24/21 11:41 Pulse 79 06/24/21 11:41 Resp 13 06/24/21 09:00 BP 105/64 06/24/21 11:41 Pulse Ox 97 06/24/21 11:41 Intake & Output 06/23/21 06/24/21 06/24/21 18:59 06:59 18:59 Intake Total 2194.77 1496.36 715 Output Total 452 074 3550 Balance 1294.77 696.36 -485 Weight 119.295 kg 125 kg Intake: IV 1194.77 996.36 225 Sodium Chloride 0.9% 1, 600 825 225 000 ml @ 75 mls/hr IV . [id number] [facility] Rx#:[id number] Tirofiban 12.5MG-250Ml Ns 171.36 171.36 0 250 ml @ 0 mls/hr IV . [facility] Rx#: [id number] Oral 1000 500 490 Output: Urine 864 274 4085 Other: Voiding Method Urinal Urinal Urinal Incontinent Incontinent Incontinent - Labs CBC & Chem 7: 06/24/21 05:52 06/24/21 05:52 Labs: Abnormal Lab Results - Last 24 Hours (Table) 06/23/21 06/24/21 06/24/21 Range/Units 19:33 05:52 05:52 WBC 14.2 H (3.8-10.6) k/uL Neutrophils # 10.0 H (1.3-7.7) k/uL Monocytes # 1.1 H (0-1.0) k/uL Sodium 135 L (137-145) mmol/L Chloride 108 H (98-107) mmol/L Glucose 118 H (74-99) mg/dL Troponin I 42.200 H* (0.000-0.034) ng/mL Assessment and Plan Assessment: I have personally seen and examined the patient and reviewed the documentation. I performed a joint evaluation with the nurse practitioner in this evaluation was done more than 15 minutes. I fully agree with the documentation above and the plan of CARE.
[2021-06-24] MEDS: buPROPion 75 MG TAB PO SCH ×2 (16:57→20:23)
[2021-06-24] MEDS: lisinopriL 20 MG TAB PO SCH (20:23)
--- NOTE | 2021-06-25 01:25 | P.PN ---
Subjective Progress Note Date: 06/24/21 41-year-old male, history of hypertension, currently everyday smoking, marijuana use occasionally and distant history of fall with left shoulder injury presents to ER with complaints of chest pain. Patient states that he woke up in the morning and felt pain in the middle of his chest and radiating to the right shoulder and to the back and right arm.. He felt some numbness in the left fingers. Patient has been having pain in the left shoulder from recent fall.Patient states that he has been having dizziness when he gets up suddenly. Denies any exertional dyspnea or shortness of breath. Pain is associate with shortness of breath and diaphoresis and nausea and episode of vomiting x1. Patient was given fentanyl by EMS and seemed to improve his pain. EKG showed ST elevation in the inferior leads. Patient was immediately taken to cardiac catheterization. EKG showed ST elevation in the inferior leads. Chest x-ray showed no acute process. Laboratory showed WBC 14.4 hemoglobin 14.8 and platelets 229 Sodium 139 potassium 5.0 chloride 109 BUN 18 and creatinine 1.07 and blood sugar is 143 Objective - Vital Signs Vital signs: Vital Signs Temp 98.2 F 06/24/21 04:00 Pulse 70 06/24/21 09:00 Resp 13 06/24/21 09:00 BP 126/91 06/24/21 09:00 Pulse Ox 94 L 06/24/21 09:00 Intake & Output 06/23/21 06/24/21 06/24/21 18:59 06:59 18:59 Intake Total 2194.77 1496.36 475 Output Total 798 049 5741 Balance 1294.77 696.36 -725 Weight 119.295 kg 125 kg Intake: IV 1194.77 996.36 225 Sodium Chloride 0.9% 1, 600 825 225 000 ml @ 75 mls/hr IV . [id number] [facility] Rx#:[id number] Tirofiban 12.5MG-250Ml Ns 171.36 171.36 0 250 ml @ 0 mls/hr IV . [facility] Rx#: [id number] Oral 1000 500 250 Output: Urine 275 818 9015 Other: Voiding Method Urinal Urinal Urinal Incontinent Incontinent Incontinent - Exam Patient is lying in the bed comfortably, no acute distress, awake alert and oriented.. HEENT: Normocephalic. Neck is supple. Pupils reactive. Nostrils clear. Oral cavity is moist. Neck reveals no JVD, carotid bruits, or thyromegaly. CHEST EXAMINATION: Trachea is central. Symmetrical expansion. Lung cole clear to auscultation and percussion. CARDIAC: Normal S1, S2 with no gallops. No murmurs ABDOMEN: Soft. Bowel sounds normal. No organomegaly. No abdominal bruits. Extremities: reveal no edema. No clubbing or cyanosis Neurologically awake, alert, oriented x3 with well-coordinated movements. No focal deficits noted - Labs CBC & Chem 7: 06/24/21 05:52 06/24/21 05:52 Labs: Abnormal Lab Results - Last 24 Hours (Table) 06/23/21 06/23/21 06/23/21 Range/Units 10:33 14:06 19:33 WBC (3.8-10.6) k/uL Neutrophils # (1.3-7.7) k/uL Monocytes # (0-1.0) k/uL Sodium (137-145) mmol/L Chloride (98-107) mmol/L Glucose (74-99) mg/dL POC Glucose (mg/dL) 154 H (75-99) mg/dL Troponin I 27.200 H* 42.200 H* (0.000-0.034) ng/mL 06/24/21 06/24/21 Range/Units 05:52 05:52 WBC 14.2 H (3.8-10.6) k/uL Neutrophils # 10.0 H (1.3-7.7) k/uL Monocytes # 1.1 H (0-1.0) k/uL Sodium 135 L (137-145) mmol/L Chloride 108 H (98-107) mmol/L Glucose 118 H (74-99) mg/dL POC Glucose (mg/dL) (75-99) mg/dL Troponin I (0.000-0.034) ng/mL Assessment and Plan Assessment: Acute ST elevated inferior wall [place] Hypertension Mild leukocytosis. Likely reactive. Follow-up repeat CBC. Ongoing nicotine addiction History of marijuana use Recent fall and left shoulder injury. DVT prophylaxis Patient was started on IV heparin and was taken to [facility]. Patient is status post cardiac catheterization and stent placement to RCA. Continue with aspirin, statins, Plavix and metoprolol. Continue with telemetry monitoring.Follow-up lipid panel Cardiology and pulmonary is on board.
[2021-06-25 05:59] VITALS: RESP 18; TEMP 98.5
[2021-06-25] MEDS: PANTOPRAZOLE 40 MG TABLET PO SCH (06:37)
[2021-06-25] MEDS: CLOPIDOGREL 75 MG TAB PO SCH (08:42)
[2021-06-25] MEDS: lisinopriL 20 MG TAB PO SCH (08:42)
[2021-06-25] MEDS: ATORVASTATIN 80 MG TAB PO SCH (08:42)
[2021-06-25] MEDS: ASPIRIN 81 MG PO SCH (08:42)
[2021-06-25] MEDS: METOPROLOL TARTRATE 25 MG TAB PO SCH (08:42)
[2021-06-25] MEDS: buPROPion 75 MG TAB PO SCH (08:43)
[2021-06-25 11:39] VITALS: BP 105/74; PULSE 61
[2021-06-25] MEDS: ACETAMINOPHEN TAB 325 MG TAB PO PRN (11:48)
--- NOTE | 2021-06-25 13:46 | P.PN ---
<ElzaLaura - Last Filed: 06/25/21 13:43> Subjective Progress Note Date: 06/25/21 Principal diagnosis: Acute inferior wall ST segment elevation myocardial infarction 41-year-old male patient, obese, BMI of 36.7, positive coronary artery disease history in the family, a chronic smoker with smokes a pack of symptoms today and he carries more than [id number] smoking history and he also smokes marijuana. He presented to the hospital because of chest pain and he was found to have your wall ST segment elevation microinfarction. Based on that, a STEMI alert was initiated and the patient was taken to the [facility] and the patient underwent cardiac catheterization and depressed and stenting times for to the RCA. Following that, the patient was brought into the intensive care unit. Currently history of any chest pain. EKG has normalized. Troponin initially was a 0.056. Normal renal function. Normal electrolytes. Plated count was at 129 with a white second of 14.4 and a hemoglobin of 14.8. The patient is known to have hypertension and no other history of cardiac disease. He has chronic bronchitis due to COPD maintenance Symbicort on outpatient basis. His cardiac catheteriz ation was done through the right radial approach. No evidence of any bleed at the site. He has equal and symmetrical pulses in all 4 extremities. No focal logical deficits point in time. In terms of his COVID 19 status, the patient has not been vaccinated for COVID 19. The patient was seen today 06/24/2021 and follow-up in the intensive care unit. He is currently resting comfortably in bed. Awake and alert in no acute distress. No episodes of chest discomfort. He's been maintaining good O2 saturations in the 90s on 2 L/m per nasal cannula. He's been afebrile. Hemodynamically stable. He was having discomfort in his left shoulder. X-ray revealed no evidence of fracture or dislocation. White count 14.2. Hemoglobin 13.7. Sodium 135. Potassium 4.2. Creatinine 0.77. Glucose 118. Troponin peaked at 42.2. He is continued on aspirin, Plavix, beta blockers, statins, NADINE inhibitor is. The patient is seen today 06/25/2021 in follow-up in intensive care unit. He is currently sitting up in bed. Awake and alert in no acute distress. Maintaining good O2 saturations in the 90s on room air. No chest pain. No palpitations, lightheadedness or dizziness. Hemodynamically stable. He is continued on aspirin and Plavix, NADINE inhibitor's, beta blockers and statins. Objective - Vital Signs Vital signs: Vital Signs Temp 98.5 F 06/25/21 08:37 Pulse 61 06/25/21 11:34 Resp 18 06/25/21 11:34 BP 105/74 06/25/21 11:34 Pulse Ox 94 L 06/25/21 11:34 Intake & Output 06/24/21 06/25/21 06/25/21 18:59 06:59 18:59 Intake Total 1375 360 Output Total 1200 Balance 175 360 Intake: IV 225 Sodium Chloride 0.9% 1, 225 000 ml @ 75 mls/hr IV . [id number] [facility] Rx#:[id number] Tirofiban 12.5MG-250Ml Ns 0 250 ml @ 0 mls/hr IV . [facility] Rx#: [id number] Oral 1150 360 Output: Urine 1200 Other: Voiding Method Urinal Urinal Urinal Incontinent Diaper Diaper Incontinent Incontinent # Voids 1 2 # Bowel Movements 1 1 - Exam GENERAL EXAM: Alert, very pleasant obese 41-year-old male patient, on room air, comfortable in no apparent distress. HEAD: Normocephalic. EYES: Normal reaction of pupils, equal size. NOSE: Clear with pink turbinates. THROAT: No erythema or exudates. NECK: No masses, no JVD. CHEST: No chest wall deformity. LUNGS: Equal air entry with no crackles, wheeze, rhonchi or dullness. CVS: S1 and S2 normal with no audible murmur, regular rhythm. ABDOMEN: No hepatosplenomegaly, normal bowel sounds, no guarding or rigidity. SPINE: No scoliosis or deformity SKIN: No rashes CENTRAL NERVOUS SYSTEM: No focal deficits, tone is normal in all 4 extremities. EXTREMITIES: There is no peripheral edema. No clubbing, no cyanosis. Peripheral pulses are intact. - Labs CBC & Chem 7: 06/24/21 05:52 06/24/21 05:52 Assessment and Plan Assessment: [address] segment elevation myocardial infarction. Patient is post cardiac catheterization and stenting of the RCA times 4. Please refer to the detailed cardiac catheterization report provided by cardiology. Currently hemodynamically stable and the patient is history of any chest pain. 2 smoker 3 hyperlipidemia 4 history of marijuana smoking 5 chronic bronchitis Plan The patient was seen and evaluated Stable from the pulmonary and critical care standpoint We will follow as needed I have personally seen and examined the patient, performed the documentation and the assessment and plan as written. Number of minutes spent on the visit: 10. <Dalton Matias - Last Filed: 06/25/21 14:43> Objective - Vital Signs Vital signs: Vital Signs Temp 98.5 F 06/25/21 08:37 Pulse 61 06/25/21 11:34 Resp 18 06/25/21 11:34 BP 105/74 06/25/21 11:34 Pulse Ox 94 L 06/25/21 11:34 Intake & Output 06/24/21 06/25/21 06/25/21 18:59 06:59 18:59 Intake Total 1375 360 Output Total 1200 Balance 175 360 Intake: IV 225 Sodium Chloride 0.9% 1, 225 000 ml @ 75 mls/hr IV . [id number] [facility] Rx#:[id number] Tirofiban 12.5MG-250Ml Ns 0 250 ml @ 0 mls/hr IV . [facility] Rx#: [id number] Oral 1150 360 Output: Urine 1200 Other: Voiding Method Urinal Urinal Urinal Incontinent Diaper Diaper Incontinent Incontinent # Voids 1 2 # Bowel Movements 1 1 - Labs CBC & Chem 7: 06/24/21 05:52 06/24/21 05:52 Assessment and Plan Assessment: I have personally seen and examined the patient and reviewed the documentation. I performed a joint evaluation with the nurse practitioner in this evaluation was done more than 15 minutes. I fully agree with the documentation above and the plan of care.
--- NOTE | 2021-06-25 13:59 | P.PN ---
Subjective Progress Note Date: 06/25/21 The patient was interviewed and examined sitting comfortably in his bed. He states he did well overnight. No recurrence and chest discomfort. He states he has been up ambulating the unit. No dyspnea or orthopnea. No palpitations, dizziness, or lightheadedness. GENERAL: Well-appearing, well-nourished and in no acute distress. NECK: Supple without JVD or thyromegaly. LUNGS: Breath sounds clear to auscultation bilaterally. Respiration equal and unlabored. No wheezes, rales or rhonchi. HEART: Regular rate and rhythm without murmurs, rubs or gallops. S1 and S2 heard. EXTREMITIES: Normal range of motion, no edema. No clubbing or cyanosis. Peripheral pulses intact and strong. VITALS: BP 108/70, pulse 76, respiratory rate 18, temp 98.5F, SaO2 7% TELEMETRY: Sinus mechanism IMPRESSION: ST elevated myocardial infarction Stenting to the RCA Hypertension Current smoker Marijuana use PLAN: Patient may be discharged home from the cardiac standpoint Emphasized the importance of doing antiplatelet therapy Reduced lisinopril to 10 mg daily Follow-up in office with Dr Godwin in 1 week I am dictating on behalf of Dr Jeronimo Godwin's history/physical and assessment/plan. Objective - Vital Signs Vital signs: Vital Signs Temp 98.5 F 06/25/21 08:37 Pulse 61 06/25/21 11:34 Resp 18 06/25/21 11:34 BP 105/74 06/25/21 11:34 Pulse Ox 94 L 06/25/21 11:34 Intake & Output 06/24/21 06/25/21 06/25/21 18:59 06:59 18:59 Intake Total 1375 360 Output Total 1200 Balance 175 360 Intake: IV 225 Sodium Chloride 0.9% 1, 225 000 ml @ 75 mls/hr IV . [id number] [facility] Rx#:[id number] Tirofiban 12.5MG-250Ml Ns 0 250 ml @ 0 mls/hr IV . [facility] Rx#: [id number] Oral 1150 360 Output: Urine 1200 Other: Voiding Method Urinal Urinal Urinal Incontinent Diaper Diaper Incontinent Incontinent # Voids 1 2 # Bowel Movements 1 1 - Labs CBC & Chem 7: 06/24/21 05:52 03/04/22 05:52
--- NOTE | 2021-06-25 15:53 | P.PN ---
Subjective Patient was seen on Sunday evening after 7 PM Patient is resting comfortably in bed no chest discomfort no dizziness lightheadedness no palpitations Rhythm is normal Blood pressure 127/74 mmHg Pulse rate in the 70s Afebrile 98.5F Breath sounds are clear no rhonchi no crackles Normal heart sounds Impression Acute inferior posterior [place] Status post stenting to the coronary artery, RCA Height on was pertinent Currently on dual antiplatelet therapy statins If he is stable tomorrow then we will discharge him on aspirin and Plavix atorvastatin lisinopril and metoprolol 25 mg twice daily Objective - Vital Signs Vital signs: Vital Signs Temp 98.5 F 06/25/21 08:37 Pulse 61 06/25/21 11:34 Resp 18 06/25/21 11:34 BP 105/74 06/25/21 11:34 Pulse Ox 94 L 06/25/21 11:34 Intake & Output 06/24/21 06/25/21 06/25/21 18:59 06:59 18:59 Intake Total 1375 720 Output Total 1200 500 Balance 175 220 Intake: IV 225 Sodium Chloride 0.9% 1, 225 000 ml @ 75 mls/hr IV . [id number] [facility] Rx#:[id number] Tirofiban 12.5MG-250Ml Ns 0 250 ml @ 0 mls/hr IV . [facility] Rx#: [id number] Oral 1150 720 Output: Urine 1200 500 Other: Voiding Method Urinal Urinal Urinal Incontinent Diaper Diaper Incontinent Incontinent # Voids 1 2 # Bowel Movements 1 1 - Labs CBC & Chem 7: 06/24/21 05:52 06/24/21 05:52
[2021-06-26] MEDS ORDERED: lisinopriL 10 MG TAB PO SCH (09:00)
== END 2021-06-25 15:52 | disposition home or self-care (01) | DRG 247 ==
LOC: SUPCPDRO 08:31 → EC 08:31 → 2SICU 08:45 → 3SCARD 06-24 11:21
PROVIDERS: ADMIT Hospitalist; ATTEND Hospitalist
PROC: B2111ZZ Fluoroscopy of Multiple Coronary Arteries using Low Osmolar Contrast (ICD-10-PCS; 2021-06-23)
PROC: 027034Z Dilation of Coronary Artery, One Artery with Drug-eluting Intraluminal Device, Percutaneous Approach (ICD-10-PCS; principal; 2021-06-23 11:00)
PROC: 4A023N7 Measurement of Cardiac Sampling and Pressure, Left Heart, Percutaneous Approach (ICD-10-PCS; 2021-06-23 11:00)
DX: I21.19 ST elevation (STEMI) myocardial infarction involving other coronary artery of inferior wall (principal); I25.10 Atherosclerotic heart disease of native coronary artery without angina pectoris; E78.5 Hyperlipidemia, unspecified; I10 Essential (primary) hypertension; F17.210 Nicotine dependence, cigarettes, uncomplicated; J44.9 Chronic obstructive pulmonary disease, unspecified; I25.2 Old myocardial infarction; Z82.49 Family history of ischemic heart disease and other diseases of the circulatory system; Z79.02 Long term (current) use of antithrombotics/antiplatelets; Z79.51 Long term (current) use of inhaled steroids; Z79.82 Long term (current) use of aspirin; Z79.899 Other long term (current) drug therapy
CPT/HCPCS: 36415; 71045; 80048; 80053; 83735; 84484; 85025; 85610; 85730; 93005; 93306; 93458; 96374; 96375; 99291